=== PATIENT | female | born 1970 | race Caucasian/White ===

== ENCOUNTER 2020-05-01 01:12 | Emergency (ER) | payer OTHER ==
[2020-05-01 01:33] VITALS: O2SAT 97
[2020-05-01] MEDS ORDERED: EMLA Cream 5 GM TP ONE (01:54)
--- NOTE | 2020-05-01 02:08 | ERPHSYRPT ---
- History of Present Illness Time Seen by Provider: 05/01/20 01:35 Source: patient Exam Limitations: no limitations Patient Subjective Stated Complaint: pt states she has had rectal pain since monday that has been increasing and states she has something coming from her rec bhaskar Triage Nursing Assessment: pt alert and oriented, answers questions approp. pt ambulatory with steady gait noted. respriations nonlabored. skin warm and dry. rectal area Physician History: This is an obese 49-year-old white female who has a history of fibromyalgia and has been having diarrheal episodes starting Monday prior to this evaluation. She then noticed what she thought was a hemorrhoid out of the anus and it is enlarged and becoming more tender than painful. There is also bleeding from this area as well. Severity: moderate Associated Symptoms: denies symptoms Allergies/Adverse Reactions: adhesive tape Allergy (Verified 05/01/20 01:58) Home Medications: Ondansetron [Zofran Odt] 8 mg PO Q12H PRN PRN 11/11/16 [History] Rizatriptan Benzoate [Rizatriptan] 10 mg PO DAILY PRN PRN 11/11/16 [History] AMITRIPTYLINE HCL 50 mg Tab [AMITRIPTYLINE HCL 50 mg Tablet] 50 mg PO HS 05/01/20 [History] Bupropion HCl Xl 150 mg [Wellbutrin XL 150 MG] 150 mg PO DAILY 05/01/20 [History] Docusate Sodium 100 mg [Colace 100 MG] 100 mg PO DAILY PRN PRN 05/01/20 [History] Hydrocodone/Acetaminophen [Hydrocodone-Acetamin 10-325 mg] 1 tablet PO TID 05/01/20 [History] Hx Tetanus, Diphtheria Vaccination/Date Given: No Hx Influenza Vaccination/Date Given: Yes Hx Pneumococcal Vaccination/Date Given: No Immunizations Up to Date: Yes Travel Risk - International Travel Have you traveled outside of the country in past 3 weeks: No - Coronavirus Screening Are you exhibiting any of the following symptoms?: No Close contact with a COVID-19 positive Pt in past 14-21 Days: No - Review of Systems Constitutional: No Symptoms Eyes: No Symptoms Ears, Nose, & Throat: No Symptoms Respiratory: No Symptoms Cardiac: No Symptoms Abdominal/Gastrointestinal: Other (Anorectal pain, and no rectal bleeding, hemorrhoid) Genitourinary Symptoms: No Symptoms Musculoskeletal: No Symptoms Skin: No Symptoms Neurological: No Symptoms Psychological: No Symptoms Endocrine: No Symptoms Hematologic/Lymphatic: No Symptoms Immunological/Allergic: No Symptoms All Other Systems: Reviewed and Negative - Past Medical History Pertinent Past Medical History: Yes Neurological History: Migraines ENT History: No Pertinent History Cardiac History: No Pertinent History Respiratory History: No Pertinent History Endocrine Medical History: No Pertinent History Musculoskeletal History: Arthritis, Fibromyalgia GI Medical History: No Pertinent History History: No Pertinent History Psycho-Social History: Anxiety Female Reproductive Disorders: No Pertinent History Other Medical History: possible ra or lupus - Past Surgical History Past Surgical History: Yes Neuro Surgical History: No Pertinent History Cardiac: No Pertinent History Respiratory: No Pertinent History Gastrointestinal: No Pertinent History Genitourinary: No Pertinent History Musculoskeletal: Orthopedic Surgery Female Surgical History: Hysterectomy Other Surgical History: rt foot bone spur removed - Social History Smoking Status: Never smoker Exposure to second hand smoke: No Drug Use: none Patient Lives Alone: No - Female History Hx Last Menstrual Period: hyster Hx Now: No - Nursing Vital Signs Nursing Vital Signs: Initial Vital Signs Temperature 98.1 F 05/01/20 01:17 Pulse Rate 85 05/01/20 01:17 Respiratory Rate 16 05/01/20 01:17 Blood Pressure 114/73 05/01/20 01:17 O2 Sat by Pulse Oximetry 97 05/01/20 01:17 Pain Scale Pain Intensity 6 - Physical Exam General Appearance: no apparent distress, alert, anxiety, obese Eye Exam: PERRL/EOMI, eyes nml inspection Ears, Nose, Throat Exam: normal ENT inspection, moist mucous membranes Neck Exam: normal inspection, non-tender, supple, full range of motion Respiratory Exam: normal breath sounds, lungs clear, airway intact, No chest tenderness, No respiratory distress Cardiovascular Exam: regular rate/rhythm, normal heart sounds, normal peripheral pulses Gastrointestinal/Abdomen Exam: soft, normal bowel sounds, No tenderness Pelvic Exam: not done Rectal Exam: hemorrhoids (Single painful external hemorrhoid right side) Back Exam: normal inspection, normal range of motion, No CVA tenderness, No vertebral tenderness Extremity Exam: normal inspection, normal range of motion, pelvis stable Neurologic Exam: alert, oriented x 3, cooperative, wharf attendant II-XII nml as tested, normal mood/affect, nml cerebellar function, nml station & gait, sensation nml Skin Exam: normal color, warm, dry Lymphatic Exam: No adenopathy SpO2 Interpretation: normal SpO2: 97 O2 Delivery: Room Air Procedures - Additional Procedures Progress: Procedure note: Procedure time 02 100 a.m. Area was prepped with Betadine solution. The external hemorrhoid that is thrombosed was incised with a #15 blade elliptical fashion. Clot was then evacuated. The area was then cleaned and dried with a 4 x 4 gauze. A peripad was then placed. Patient tolerated procedure well. - Course Nursing assessment & vital signs reviewed: Yes Ordered Tests: Medication Summary Discontinued Medications Generic Name Dose Route Start Last Admin Trade Name Freq PRN Reason Stop Dose Admin Lidocaine/Prilocaine Confirm 05/01/20 01:54 Emla Cream 5 Gm Administered 05/01/20 01:55 Dose 5 gm TP .STK-MED ONE - Progress Progress: improved, pain not gone completely, re-examined Counseled pt/family regarding: diagnosis, need for follow-up - Departure Departure Disposition: Home Clinical Impression: Thrombosed external hemorrhoid Condition: Stable Critical Care Time: No Referrals: CONNER REDD PA [Primary Care Provider] - Additional Instructions: Sitz bath 2-3 times a day with warm water with Epsom salts or soapy water present. Use your pain medication as prescribed. Expect bleeding from site over the next few days which should decrease. Return to the emergency department if you are concerned about your pain level and amount of bleeding. Wear a peripad to protect your close from blood.
[2020-05-01 02:45] VITALS: BP 115/71; PULSE 84
== END 2020-05-01 02:53 | disposition home or self-care (01) ==
LOC: ED 01:12
DX: K64.5 Perianal venous thrombosis (principal); K62.89 Other specified diseases of anus and rectum
CPT/HCPCS: 46083; 99283; A9270-GY

== ENCOUNTER 2022-09-28 16:24 | Day surgery (SDC) | payer OTHER ==
[2022-09-28] MEDS ORDERED: LIDOCAINE HCL 1% 50 MG/5 ML VL PF IJ ONE (16:25)
[2022-09-28] MEDS ORDERED: BUPIVACAINE 0.5% VIAL IJ ONE (16:25)
[2022-09-28] MEDS ORDERED: Depo-Medrol 40 MG/ML IM ONE (16:25)
[2022-09-28] MEDS ORDERED: Lactated Ringers 1,000 ML IV ONE (16:58)
--- NOTE | 2022-09-28 20:09 | XRAY ---
Indication: Right knee injection. Intraoperative fluoroscopy provided for 6 seconds. Single digital spot image submitted for interpretation demonstrates needle tip projecting over the right femur intercondylar notch. Small amount of contrast injected for needle tip placement. Correlate with intraoperative findings/report.
--- NOTE | 2022-09-29 11:43 | XRAY ---
6 seconds of fluoroscopy was used in surgery for a right knee intra-articular injection.
== END 2022-09-28 18:29 | disposition home or self-care (01) ==
LOC: SDC-PAIN 16:24
PROVIDERS: ATTEND Psychiatry & Neurology Pain Medicine
DX: M17.11 Unilateral primary osteoarthritis, right knee (principal); Z79.899 Other long term (current) drug therapy
CPT/HCPCS: 20610; 73560; 77002; J1030; J2001; Q9966

== ENCOUNTER 2023-05-03 16:22 | Day surgery (SDC) | payer OTHER ==
[2023-05-03] MEDS ORDERED: LIDOCAINE HCL 1% 50 MG/5 ML VL PF IJ ONE (16:23)
[2023-05-03] MEDS ORDERED: Depo-Medrol 40 MG/ML IM ONE (16:23)
[2023-05-03] MEDS ORDERED: BUPIVACAINE 0.5% VIAL IJ ONE (16:23)
--- NOTE | 2023-05-03 19:11 | XRAY ---
Indication: Right knee injection. Intraoperative fluoroscopy provided for 14 seconds. Single digital spot images submitted for interpretation demonstrates needle tip projecting over the right femur intercondylar notch. Small amount of contrast injected for needle tip placement. Correlate with intraoperative findings/report.
--- NOTE | 2023-05-04 08:48 | XRAY ---
14 seconds of fluoroscopy was used in surgery for a right intra-articular knee injection.
== END 2023-05-03 18:20 | disposition home or self-care (01) ==
LOC: SDC-PAIN 16:22
PROVIDERS: ATTEND Psychiatry & Neurology Pain Medicine
DX: M17.11 Unilateral primary osteoarthritis, right knee (principal)
CPT/HCPCS: 20610; 73560; 77002; J1030; J2001; Q9966